=== PATIENT | male | born 1950 | race Caucasian/White ===

== ENCOUNTER → 2018-01-11 | Outpatient (CLI) | payer MEDICARE, OTHER | END | disposition home or self-care (01) | LOC: RES 07:46 | DX: R06.00 Dyspnea, unspecified (principal) | CPT/HCPCS: 94060; 94726; 94729 ==

== ENCOUNTER 2018-03-24 10:54 | Emergency (ER) | payer MEDICARE, OTHER ==
[~2018-03-24] VITALS: Ht 177.8 cm; Wt 95.2 kg
[2018-03-24 11:57] LABS: HEMATOCRIT 42.8 % (38.0-50.0); HEMOGLOBIN 14.5 G/DL (12.5-16.6); MCH 31.7 PG (29.0-34.0); MCHC 33.9 G/DL (30.0-36.0); MCV 93.4 FL (86-99); PLATELET COUNT 178 K/uL (156-360); RBC DIS.WIDTH-CV 13.7 % (11.8-14.6); RBC DIS.WIDTH-SD 46.9 % (39-53); RED BLOOD COUNT 4.58 M/uL (4.00-5.50); WHITE BLOOD COUNT 8.3 K/uL (4.1-10.2)
[2018-03-24 12:06] LABS: ALBUMIN 4.2 g/dL (3.2-4.8); CHLORIDE 101 mEq/L (99-109); POTASSIUM 4.2 mEq/L (3.7-5.4); SODIUM 138 mEq/L (136-147)
[2018-03-24 12:08] LABS: GLUCOSE 114 mg/dL (70-99); TOTAL PROTEIN 7.1 g/dL (6.4-8.3)
[2018-03-24 12:10] LABS: TOTAL BILIRUBIN 0.8 mg/dL (0.0-1.0)
[2018-03-24 12:12] LABS: ALKALINE PHOSPHATASE 47 IU/L (3-129); CREATININE 0.9 mg/dL (0.6-1.3); GFR ESTIMATE (CALCULATED) > 59 mL/min/ (58.99-99999)
[2018-03-24 12:13] LABS: UREA NITROGEN (BUN) 14 mg/dL (9-23)
[2018-03-24 12:14] LABS: AST (GOT) 31 IU/L (2-34)
[2018-03-24 12:15] LABS: ALT (GPT) 49 IU/L (3-49)
[2018-03-24 12:16] LABS: TROP-I INTERPRETATION NEGATIVE; TROPONIN-I < 0.01 ng/mL (0.0-0.30)
[2018-03-24] MEDS ORDERED: NORCO 5/3251 TABLET PO (12:42)
[2018-03-24 14:35] VITALS: BP 125/61
== END 2018-03-24 14:35 | disposition home or self-care (01) ==
LOC: EME 10:54 → TRA 10:54
PROVIDERS: Emergency Medicine Emergency Medical Services
DX: S32.019A Unspecified fracture of first lumbar vertebra, initial encounter for closed fracture (principal); S22.089A Unspecified fracture of T11-T12 vertebra, initial encounter for closed fracture; S22.32XA Fracture of one rib, left side, initial encounter for closed fracture; S39.012A Strain of muscle, fascia and tendon of lower back, initial encounter; W13.2XXA Fall from, out of or through roof, initial encounter; F17.200 Nicotine dependence, unspecified, uncomplicated; I10 Essential (primary) hypertension; E78.5 Hyperlipidemia, unspecified; E11.9 Type 2 diabetes mellitus without complications
CPT/HCPCS: 70450; 71260; 72125; 72129; 72132; 74177; 80053; 84484; 85027; 99281; 99285; J7040